=== PATIENT | female | born 1940 | race Caucasian/White ===

== ENCOUNTER → 2017-06-10 | Outpatient (CLI) | payer MEDICARE, MEDICAID ==
[~2017-06-10] MED LIST: ALBU8.5H3 INH; ASPI-496 PO; DEXT15CA4 PO; DOXY100T PO; HYDR-3241 PO; LOSA100T6 PO; MORP15TA3 PO; PRED20TA PO; [UNRECOGNIZED DRUG - CODE] SL; bp medication
== END | disposition home or self-care (01) ==
LOC: PETCFH 09:26
PROVIDERS: ATTEND Internal Medicine Hematology & Oncology
DX: C50.919 Malignant neoplasm of unspecified site of unspecified female breast (principal)
CPT/HCPCS: 78306; A9503